=== PATIENT | female | born 1985 | race Two or more races ===

== ENCOUNTER 2020-04-13 19:07 | Emergency (ER) | payer MEDICAID ==
[~2020-04-13] VITALS: Ht 157.5 cm; Wt 89.4 kg
[2020-04-13 19:30] VITALS: BP 125/81
[2020-04-13] MEDS ORDERED: LIDOCAINE W/ EPINEPHRINE 1% 20ML VIAL ID ONE (19:45)
== END 2020-04-13 20:49 | disposition home or self-care (01) ==
LOC: ER 19:07
DX: T81.31XA Disruption of external operation (surgical) wound, not elsewhere classified, initial encounter (principal); S01.412A Laceration without foreign body of left cheek and temporomandibular area, initial encounter; X58.XXXA Exposure to other specified factors, initial encounter; Y93.89 Activity, other specified; Y92.89 Other specified places as the place of occurrence of the external cause; Y99.8 Other external cause status
CPT/HCPCS: 12011

== ENCOUNTER 2020-04-21 18:14 | Emergency (ER) | payer MEDICAID ==
[~2020-04-21] VITALS: Ht 160 cm; Wt 89.4 kg
[2020-04-21 19:24] VITALS: BP 141/78
== END 2020-04-21 19:47 | disposition home or self-care (01) ==
LOC: ER 18:16
DX: S01.412D Laceration without foreign body of left cheek and temporomandibular area, subsequent encounter (principal); X58.XXXD Exposure to other specified factors, subsequent encounter